=== PATIENT | female | born 1955 | race Two or more races ===

== ENCOUNTER 2017-06-06 13:21 | Emergency (ER) | payer OTHER ==
[~2017-06-06] VITALS: Ht 152.4 cm; Wt 49.0 kg
--- NOTE | 2017-06-06 13:21 | NUR ---
Patient was brought in by [facility] 85 to room 4A with a family member at bedside c/o generalized weakness Patient's respiration is easy, MURILLO, denies nausea or denies acute pain at this time.
--- NOTE | 2017-06-06 13:31 | NUR ---
After repeated explanations to another family member (this patent's brother) that he needs to wait until the patient is settled in the ER bed & initially seen by our ER doctor, this particular family member threatened the ER staff with..." I am ROSALIE. I will write you up. I will call Naomie." Security back up and nursing booth supervisor Braden notified.
--- NOTE | 2017-06-06 13:43 | NUR ---
Patient and patient's family want to leave the hospital against medical advice. Dr Porter notified.
--- NOTE | 2017-06-06 13:45 | NUR ---
When the AMA form was provided to patient and family per their request, "Give us 5 minutes." , the patient's brother said.
--- NOTE | 2017-06-06 13:50 | NUR ---
Patient and family do not wish to proceed with medical care recommended by . Patient given information related to possible complications, up to and including , which could occur as a result of leaving the hospital at this time. Patient and family verbalized understanding of risks involved due to leaving against medical advice. Patient's brother has signed AMA form after the patient gave verbal consent to leave AMA. Patient speaks fluent [place].
== END 2017-06-06 13:57 | disposition left against medical advice (07) ==
LOC: ER 13:23
DX: R55 Syncope and collapse (principal); I10 Essential (primary) hypertension; Z53.29 Procedure and treatment not carried out because of patient's decision for other reasons
CPT/HCPCS: 93005; A4663